=== PATIENT | female | born 1975 | race Caucasian/White ===

== ENCOUNTER 2023-09-14 14:46 | Emergency (ER) | payer SELFPAY ==
[~2023-09-14] VITALS: Ht 160 cm; Wt 91.6 kg
[2023-09-14 15:07] LABS: BILIRUBIN, URINE NEGATIVE (negative); BLOOD/HGB, URINE LARGE (Negative); KETONE, URINE TRACE (Negative); LEUK ESTERASE, URINE NEGATIVE (negative); NITRITE, URINE NEGATIVE (negative); PH, URINE 5.5 (5-7)
[2023-09-14 15:12] LABS: EPITHELIAL CELLS, URINE SQUAMOUS 2+ /lpf (0-1+)
[2023-09-14 15:13] LABS: BACTERIA, URINE RARE /hpf (negative); CASTS, URINE NONE SEEN \\lpf; COLLECTION TYPE, URINE CLEAN CATCH; CRYSTALS, URINE NONE SEEN (0-1+); RED BLOOD CELLS, URINE >50 /hpf (0-5)
[2023-09-14 15:14] LABS: REFLEX CULTURE, URINE No (No)
[2023-09-14] MEDS ORDERED: ondansetron HCL 4 MG/2 ML VIAL IV ONE ×2 (15:15→18:00)
[2023-09-14 15:19] LABS: BASOPHILS 0.7 % (0-2); EOSINOPHILS 0.1 % (0-6); HEMATOCRIT 29.6 % (35.0-50.0); HEMOGLOBIN 8.9 g/dL (12.0-18.0); LYMPHOCYTES 10.6 % (24-44); MCH 18.2 (27-36); MCHC 30.2 g/dl (30-36); MCV 60.4 fl (81-99); MONOCYTES 6.2 % (0-12); NEUTROPHILS 82.4 % (39-80); PLATELET COUNT 391 K/uL (140-440); RDW 19.7 (10.5-15.0)
[2023-09-14 15:31] LABS: ALBUMIN 3.8 g/dL (3.4-5.0); ALBUMIN/GLOBULIN RATIO 1.06 (1.1-2.4); ANION GAP 15.8 (7-21); BILIRUBIN, TOTAL 0.5 ng/dL (0.2-1.0); BUN/CREATININE RATIO 13.63 (6.0-28.6); CALCIUM 8.4 mg/dL (8.5-10.1); CREATININE, SERUM 0.88 mg/dL (0.55-1.02); POTASSIUM 3.8 mmol/L (3.5-5.1); PROTEIN, TOTAL 7.4 g/dL (6.4-8.2)
[2023-09-14] MEDS ORDERED: HYDROmorphone HCL 1 MG/ML SYR IV PRN (16:00)
[2023-09-14] MEDS ORDERED: KETOROLAC TROMETHAMINE 30 MG/ML VIAL IV ONE (16:00)
[2023-09-14 16:18] LABS: ABO O; ANTIBODY SCREEN NEGATIVE
[2023-09-14] MEDS ORDERED: TRANEXAMIC ACID 1,000 MG/10 ML AMP PO ONE (18:00)
[2023-09-14] MEDS ORDERED: HYDROCODON-ACE1 EA11 PO (18:33)
[2023-09-14] MEDS ORDERED: TRANEXAMIC ACI650 MG PO (18:33)
[2023-09-14] MEDS ORDERED: PROVERA10 MG PO (18:33)
[2023-09-14] MEDS ORDERED: ONDANSETRON ODT8 MG PO (18:33)
[2023-09-14] MEDS ORDERED: FEROSUL325 MG PO (18:33)
[2023-09-14 18:38] VITALS: BP 97/67
[2023-09-17 09:22] LABS: RH POSITIVE
== END 2023-09-14 18:38 | disposition home or self-care (01) ==
LOC: ED 14:46
PROVIDERS: Emergency Medicine
DX: N93.8 Other specified abnormal uterine and vaginal bleeding (principal); D46.9 Myelodysplastic syndrome, unspecified; Z88.1 Allergy status to other antibiotic agents
CPT/HCPCS: 36415; 76830; 76856; 80053; 81001; 83690; 84703; 85025; 85060; 86850; 86900; 86901; 96374; 96375; 96376; 99284-25; J1170; J1885; J2405

== ENCOUNTER 2024-01-12 04:06 | Emergency (ER) | payer OTHER ==
[~2024-01-12] VITALS: Ht 160 cm; Wt 95.9 kg
[~2024-01-12 04:06] MED LIST: FEROSUL325 MG PO; HYDROCODON-ACE1 EA11 PO; ONDANSETRON ODT8 MG PO; PROVERA10 MG PO; TRANEXAMIC ACI650 MG PO
[2024-01-12 04:27] LABS: BILIRUBIN, URINE NEGATIVE (negative); BLOOD/HGB, URINE TRACE-I (Negative); KETONE, URINE NEGATIVE (Negative); LEUK ESTERASE, URINE NEGATIVE (negative); NITRITE, URINE NEGATIVE (negative); PH, URINE 5.5 (5-7)
[2024-01-12] MEDS ORDERED: FAMOTIDINE 20 MG/ 2 ML VIAL IV ONE (04:30)
[2024-01-12] MEDS ORDERED: LACTATED RINGER'S 1,000 ML IV ONE (04:30)
[2024-01-12] MEDS ORDERED: ondansetron HCL 4 MG/2 ML VIAL IV ONE (04:30)
[2024-01-12] MEDS ORDERED: KETOROLAC TROMETHAMINE 30 MG/ML VIAL IV ONE (04:30)
[2024-01-12 04:35] LABS: BACTERIA, URINE RARE /hpf (negative); CASTS, URINE NONE SEEN \\lpf; COLLECTION TYPE, URINE CLEAN CATCH; CRYSTALS, URINE NONE SEEN (0-1+); EPITHELIAL CELLS, URINE SQUAMOUS 1+ /lpf (0-1+); REFLEX CULTURE, URINE No (No)
[2024-01-12 04:53] LABS: HEMOGLOBIN 9.9 g/dL (12.0-18.0)
[2024-01-12 04:57] LABS: BASOPHILS 0.9 % (0-2); EOSINOPHILS 1.7 % (0-6); HEMATOCRIT 31.8 % (35.0-50.0); LYMPHOCYTES 43.4 % (24-44); MCH 19.7 (27-36); MCHC 31.2 g/dl (30-36); MONOCYTES 9.6 % (0-12); NEUTROPHILS 44.4 % (39-80); PLATELET COUNT 298 K/uL (140-440); RBC 5.05 M/ul (4.3-5.7); RDW 21.8 (10.5-15.0)
[2024-01-12 05:12] LABS: ALBUMIN 3.6 g/dL (3.4-5.0); ALBUMIN/GLOBULIN RATIO 1.03 (1.1-2.4); ANION GAP 16.6 (7-21); BILIRUBIN, TOTAL 0.3 ng/dL (0.2-1.0); BUN/CREATININE RATIO 12.9 (6.0-28.6); CALCIUM 8.4 mg/dL (8.5-10.1); CREATININE, SERUM 0.93 mg/dL (0.55-1.02); MAGNESIUM 1.8 mg/dL (1.8-2.4); PHOSPHORUS, INORGANIC 3.4 mg/dL (2.5-4.9); POTASSIUM 3.6 mmol/L (3.5-5.1); PROTEIN, TOTAL 7.1 g/dL (6.4-8.2)
[2024-01-12] MEDS ORDERED: HYDROmorphone HCL 1 MG/ML SYR IV PRN (05:45)
[2024-01-12] MEDS ORDERED: droPERidol 5 MG/2 ML VIAL IV ONE (05:45)
[2024-01-12] MEDS ORDERED: FEOSOL325 MG PO (06:42)
[2024-01-12 07:16] VITALS: BP 102/58
== END 2024-01-12 07:17 | disposition home or self-care (01) ==
LOC: ED 04:06
PROVIDERS: Internal Medicine
DX: M54.50 Low back pain, unspecified (principal); D64.9 Anemia, unspecified; Z88.1 Allergy status to other antibiotic agents; Z79.899 Other long term (current) drug therapy
CPT/HCPCS: 36415; 74176; 80053; 81001; 83690; 83735; 84100; 84703; 85025; 85060; 96374; 96375; 99284-25; J1170; J1790; J1885; J2405; J7121